=== PATIENT | female | born 1940 | race Caucasian/White ===

== ENCOUNTER 2019-05-29 08:32 | Inpatient (IN) | payer OTHER, BC ==
--- NOTE | 2019-05-29 09:35 | PDOC ---
History of Present Illness - General Stated Complaint: DRY COUGH, FEVER Time Seen by Provider: 05/29/19 09:30 - History of Present Illness Initial Comments: 05/29/19 11:27 79y/o F hx of HTN, presents to the ED with dry cough and generalized weakness for 1 week. she has not had any shortness of breath, fevers or chills at home. And she has not knowingly had any sick contacts. She has had 2 episodes of nausea and vomiting this week and has had decreased oral intake. emeses was NBNB She denies any chest pain , abdominal pain, diarrhea. she endorses ge neralized weakness and fatigue. 05/29/19 11:28 Past History - Past Medical History Allergies/Adverse Reactions: Allergies Allergy/AdvReac Type Severity Reaction Status Date / Time No Known Allergies Allergy Verified 05/29/19 10:00 Home Medications: Ambulatory Orders Azithromycin 250 mg PO ONCE 4 Days #4 tablet 05/29/19 *Physical Exam - Physical Exam 05/29/19 11:28 GENERAL: Awake, alert, and fully oriented, in no acute distress, appears tired HEAD: No signs of trauma, normocephalic, atraumatic EYES: PERRLA, EOMI, sclera anicteric, conjunctiva clear ENT: Auricles normal inspection, hearing grossly normal, nares patent, oropharynx clear without exudates. Moist mucosa NECK: Normal ROM, supple, no lymphadenopathy, JVD, or masses LUNGS: No distress, speaks full sentences, clear to auscultation bilaterally HEART: Regular rate and rhythm, normal S1 and S2, no murmurs, rubs or gallops, ABDOMEN: Soft, nontender, normoactive bowel sounds. No guarding, no rebound. No masses EXTREMITIES : Normal inspection, Normal range of motion, no edema. No clubbing or cyanosis NEUROLOGICAL: Cranial nerves II through XII grossly intact. Normal speech, no focal sensorimotor deficits SKIN: Warm, Dry, normal turgor, no rashes or lesions noted 05/29/19 11:31 ED Treatment Course - LABORATORY CBC & Chemistry Diagram: 05/29/19 09:56 05/29/19 09:56 Medical Decision Making - Medical Decision Making 05/29/19 11:32 79y/o F hx of HTN, presents to the ED with dry cough and generalized weakness for 1 week. workup cbc, cmp, troponin, x-rays iv fluids lab results remarkable for hypokalemia, hypomagnesemia, will replete and check labs and ekg atelactasis in lower left lung on CXR concerns for pneumonia will give azithromycin. 05/29/19 11:33 Discharge - Discharge Information Problems reviewed: Yes Clinical Impression/Diagnosis: Hypokalemia Pneumonia Qualifiers: Pneumonia type: due to unspecified organism Laterality: left Lung location: unspecified part of lung Qualified Code(s): J18.9 - Pneumonia, unspecified organism Condition: Stable Disposition: HOME - Additional Discharge Information Prescriptions: Azithromycin 250 mg PO ONCE 4 Days #4 tablet - Follow up/Referral - Patient Discharge Instructions Patient Printed Discharge Instructions: Pneumonia-Adult, [facility]-Coronavirus Instructions Additional Instructions: Pneumonia is a lung infection that can cause a fever, cough, and trouble breathing. Please continue all antibiotics as directed until complete. Nutrition is important - eat small frequent meals. Get lots of rest and drink fluids. Call your Primary Care Doctor upon arrival home from the hospital we have also discussed with you that your pneumonia could be bacterial, but could also have a viral cause of which covid -19 is a possible cause. stay at home stay hydrated.and take tylenol for pain, but return if you develop shortness of breath. - Post Discharge Activity
[2019-05-29] MEDS ORDERED: SODIUM CHLORIDE 500 ML IV STA ×2 (10:04→11:12)
--- NOTE | 2019-05-29 10:22 | PDOC ---
Documentation entered by Azalia Singh SCRIBE, acting as scribe for Sherie Garcia DO. Sherie Garcia DO: This documentation has been prepared by the Francisco de leon Brenda, SCRIBE, under my direction and personally reviewed by me in its entirety. I confirm that the documentation accurately reflects all work, treatment, procedures, and medical decision making performed by me. Attending Attestation - Resident Resident Name: Timothy Lema - ED Attending Attestation I have performed the following: I have examined & evaluated the patient, The case was reviewed & discussed with the resident, I agree w/resident's findings & plan, Exceptions are as noted - HPI HPI: 05/29/19 09:38 The patient is a 79 year old female, with a significant PMH of who presents to the emergency department with 4 days of cough and lightheadedness. Daughter brought her to the ED for the increasing lightheadedness. The patient denies any pain. Denies chest pain, shortness of breath. Denies fever, chills, nausea, vomiting, diarrhea and constipation. Denies dysuria, frequency, urgency and hematuria. Allergies: NKA Social history: No reported hx of tobacco use, alcohol use or illicit drug use. - Physicial Exam PE: 05/29/19 09:38 GENERAL: Awake, alert, and fully oriented, in no acute distress HEAD: No signs of trauma EYES: PERRLA, EOMI, sclera anicteric, conjunctiva clear ENT: Auricles normal inspection, hearing grossly normal, nares patent, oropharynx clear without exudates. Moist mucosa NECK: Normal ROM, supple, no lymphadenopathy, JVD, or masses LUNGS: Breath sounds equal, clear to auscultation bilaterally. No wheezes, and no crackles HEART: Regular rate and rhythm, normal S1 and S2, no murmurs, rubs or gallops ABDOMEN: Soft, nontender, normoactive bowel sounds. No guarding, no rebound. No masses EXTREMITIES: Normal range of motion, no edema. No clubbing or cyanosis. No cords, erythema, or tenderness NEUROLOGICAL: Cranial nerves II through XII grossly intact. Normal speech, normal gait SKIN: Warm, Dry, normal turgor, no rashes or lesions noted. - Medical Decision Making 05/29/19 10:21 a/p: 79yo female from home for eval of lightheadedness -pt denies feeling lightheaded, but her daughter feels she was lightheaded and called 911 -bumped into a door 2 weeks ago, healing ecchymosis to bridge of nose, no ttp, no epistaxis -pt states coughing recently, dry -denies f/c, no sob -will send labs, ekg, cxr -will hydrate, orally and iv -will monitor and reassess -pt is nontoxic in appearance 05/29/19 11:10 cxr clear sodium 127, low chloride pending potassium cxr clear 05/29/19 11:15 potassium is 2.8 will replete and then repeat ekg 05/29/19 13:51 pt with vomiting 05/29/19 13:51 pt with hypokalemia, hyponatremia vomiting in the ER will need admission 05/29/19 14:11 resident discussed the case with beth who accepts pt to service 05/29/19 14:21 pt is in new onset afib Heart Score/ECG Review - ECG Intrepretation Comment:: 05/29/19 14:20 afib at 88, nl axis, no acute st/t wave findings Discharge - Discharge Information Problems reviewed: Yes Clinical Impression/Diagnosis: Hypokalemia, New onset a-fib Pneumonia Qualifiers: Pneumonia type: due to unspecified organism Laterality: left Lung location: unspecified part of lung Qualified Code(s): J18.9 - Pneumonia, unspecified organism Condition: Stable Disposition: HOME - Additional Discharge Information Prescriptions: Azithromycin 250 mg PO ONCE 4 Days #4 tablet - Follow up/Referral - Patient Discharge Instructions Patient Printed Discharge Instructions: Pneumonia-Adult, [facility]-Coronavirus Instructions Additional Instructions: Pneumonia is a lung infection that can cause a fever, cough, and trouble breathing. Please continue all antibiotics as directed until complete. Nutrition is important - eat small frequent meals. Get lots of rest and drink fluids. Call your Primary Care Doctor upon arrival home from the hospital we have also discussed with you that your pneumonia could be bacterial, but could also have a viral cause of which covid -19 is a possible cause. stay at home stay hydrated.and take tylenol for pain, but return if you develop shortness of breath. - Post Discharge Activity
[2019-05-29 10:29] LABS: BASO % 0.3 % (0-2.0); EOS % 0.3 % (0-4.5); HEMOGLOBIN 14.8 GM/dL (10.7-15.3); LYMPH % 9.9 % (8-40); MCH 34.9 pg (25.7-33.7); MCHC 35.4 g/dl (32.0-36.0); MEAN CELL VOLUME 98.8 fl (80-96); MEAN PLT VOLUME 9.2 fl (7.5-11.1); MONO % 8.2 % (3.8-10.2); NEUT % 81.3 % (42.8-82.8); PLATELET COUNT 324 K/MM3 (134-434); RBC 4.25 M/mm3 (3.60-5.2); RDW 13.3 % (11.6-15.6); WHITE BLOOD COUNT 8.2 K/mm3 (4.0-10.0)
[2019-05-29 11:06] LABS: ALK PHOS 74 U/L (45-117); ANION GAP 20 MMOL/L (8-16); BILIRUBIN,TOTAL 1.6 mg/dL (0.2-1); BLOOD UREA NITROGEN 22.8 mg/dL (7-18); CALCIUM 10.8 mg/dL (8.5-10.1); CHLORIDE 83 mmol/L (98-107); CO2 24 mmol/L (21-32); CREATININE 1.3 mg/dL (0.55-1.3); GLUCOSE,RANDOM 189 mg/dL (74-106); SGOT/AST 79 U/L (15-37); SGPT/ALT 51 U/L (13-61); SODIUM 127 mmol/L (136-145)
[2019-05-29 11:11] LABS: POTASSIUM 2.8 mmol/L (3.5-5.1)
[2019-05-29] MEDS ORDERED: POTASSIUM CHLORIDE TABS 20 MEQ TABLET.ER (FP) PO ONE ×2 (11:11→12:14)
[2019-05-29] MEDS ORDERED: MAGNESIUM SULF 50% (8.12 MEQ/2 ML-1 GM VIAL) IVPB ONE (11:16)
[2019-05-29] MEDS ORDERED: AZITHROMYCIN IVPB 500 MG in DEXTROSE 5%-WATER - 250 ML IVPB ONE (11:26)
[2019-05-29] MEDS ORDERED: MAGNESIUM SULF 50% (8.12 MEQ/2 ML-1 GM VIAL) ONE (12:14)
[2019-05-29] MEDS ORDERED: ONDANSETRON 4 MG/2 ML VIAL IVPUSH ONE (13:41)
[2019-05-29] MEDS ORDERED: ASPIRIN 81 MG CHEWABLE TABLETS PO ONE (14:21)
[2019-05-29 15:06] LABS: ALBUMIN 3.5 g/dl (3.4-5.0); ALK PHOS 63 U/L (45-117); ANION GAP 18 MMOL/L (8-16); BILIRUBIN,TOTAL 1.1 mg/dL (0.2-1); BLOOD UREA NITROGEN 18.5 mg/dL (7-18); CALCIUM 9.5 mg/dL (8.5-10.1); CHLORIDE 87 mmol/L (98-107); CO2 23 mmol/L (21-32); CREATININE 1.1 mg/dL (0.55-1.3); GLUCOSE,RANDOM 215 mg/dL (74-106); MAGNESIUM 2.9 mg/dL (1.8-2.4); PHOSPHOROUS 2.8 mg/dL (2.5-4.9); SGOT/AST 69 U/L (15-37); SGPT/ALT 43 U/L (13-61); SODIUM 128 mmol/L (136-145); TOT PROT 6.9 g/dl (6.4-8.2)
[2019-05-29] MEDS ORDERED: ASPIRIN 81 MG CHEWABLE TABLETS ONE (15:07)
[2019-05-29] MEDS ORDERED: ONDANSETRON 4 MG/2 ML VIAL ONE (15:07)
--- NOTE | 2019-05-29 15:26 | HP ---
CHIEF COMPLAINT: Generalized weakness x 3 weeks PCP: In [place] HISTORY OF PRESENT ILLNESS: Pt is a 79 yo F with PMHx of HTN presenting from her daughters home for generalized weakness, poor PO intake and vomiting. Pt reports having a gradually decreasing appetite and PO intake over the past 3 weeks with no fever, no chest pain, no leg swelling, but pt reports a chronic dry cough. She quit smoking 46 years ago after smoking 1PPD x20 years. Pt lives in [place] and has been visiting the daughter for the past 1 week . She does not drive ( uses public transportation) and was independent in ADLS without use of walker. Pt was noted to be in new onset afib in the ED x2 EKGs, with hypokalemia and hyponatremia. She was noted to have thrown up non bloody, non bilous vomit after PO KCL was given, she denies nausea prior to the episode of vomiting, no diarrhea, no bloody stools. CXR showed atelectasis and ED decided to R/O COVID. When I saw the pt, there was no chest pain, no shortness of breath. She was initially prescribed azithromycin for CXR findings then recommended for admission for not tolerating PO. ER course was notable for: (1) CXR with atelectasis (2) K-2.8, Na-127, jonna 1.6 (3) EKG x2- new onset afib-rate 78vs 88, QTC-437vs 447, TWi then flattening anterior-inf leads (4) PO KCL 40meq x2, 1L NS, zofran Recent Travel: PAST MEDICAL HISTORY: As above PAST SURGICAL HISTORY: Denies Social History: Smoking:Quit over 40 years ago, smoked 1PPD x20 years Alcohol:4 drinks per week(wine/gin) Drugs: denies Allergies No Known Allergies Allergy (Verified 05/29/19 10:00) HOME MEDICATIONS: Home Medications Medication Instructions Recorded Azithromycin 250 mg PO ONCE 4 Days #4 tablet 05/29/19 REVIEW OF SYSTEMS As in HPI PHYSICAL EXAMINATION Vital Signs - 24 hr 05/29/19 09:56 Temperature 98.3 F Pulse Rate 86 Respiratory 20 Rate Blood Pressure 143/68 O2 Sat by Pulse 97 Oximetry (%) GENERAL: Awake, alert, and fully oriented, in no acute distress. HEAD: Normal with no signs of trauma. EYES: Pupils equal, round and reactive to light, extraocular movements intact, sclera anicteric, conjunctiva clear. EARS, NOSE, THROAT: Ears normal, nares patent, oropharynx clear without exudates. Moist mucous membranes. NECK: Normal range of motion, supple without lymphadenopathy, JVD, or masses. LUNGS: Few crackles L lung posteriorly ,no wheezes HEART: Regular rate and rhythm, normal S1 and S2 without murmur ABDOMEN: Soft, nontender, not distended, normoactive bowel sounds, no guarding, no rebound, no masses. MUSCULOSKELETAL: Normal range of motion at all joints. No bony deformities or tenderness. No CVA tenderness. LOWER EXTREMITIES: 2+ pulses, warm, well-perfused. No calf tenderness. No peripheral edema. NEUROLOGICAL: Cranial nerves II-XII intact. Normal speech. Gait not observed, no facial asymetry, able to move all extremities, Strength 5/5 globally. PSYCHIATRIC: Cooperative. Good eye contact. Appropriate mood and affect. SKIN: Warm, dry, normal turgor, no rashes or lesions noted, normal capillary refill. Laboratory Results - last 24 hr 05/29/19 05/29/19 05/29/19 09:56 09:56 14:00 WBC 8.2 RBC 4.25 Hgb 14.8 Hct 42.0 MCV 98.8 H MCH 34.9 H MCHC 35.4 RDW 13.3 Plt Count 324 MPV 9.2 Absolute Neuts (auto) 6.6 Neutrophils % 81.3 Lymphocytes % 9.9 Monocytes % 8.2 Eosinophils % 0.3 Basophils % 0.3 Nucleated RBC % 0 Sodium 127 L 128 L Potassium 2.8 L* 3.0 L Chloride 83 L 87 L Carbon Dioxide 24 23 Anion Gap 20 H 18 H BUN 22.8 H 18.5 H Creatinine 1.3 1.1 Est GFR (CKD-EPI)AfAm 45.83 56.08 Est GFR (CKD-EPI)NonAf 39.54 48.39 Random Glucose 189 H 215 H Calcium 10.8 H 9.5 Phosphorus 2.8 Magnesium 2.9 H Total Bilirubin 1.6 H 1.1 H AST 79 H 69 H ALT 51 43 Alkaline Phosphatase 74 63 Creatine Kinase 159 143 Creatine Kinase Index 1.5 CK-MB (CK-2) 2.4 Troponin I < 0.02 < 0.02 Total Protein 8.0 6.9 Albumin 4.0 3.5 ASSESSMENT/PLAN: #Generalized weakness possibly secondary to low potassium vs new onset afib vs COVID COVID swab airborne/contact precautions Respiratory virus Legionella/strep Ag CXR- atelectasis CT chest pending to R/O infiltrates Received azithromycin 1 dose in ED, will follow #New onset afib Given ASA in ED Cardiology consult- Dr Reyes [id number] (4.8 stroke risk) per year, pt TSH Lipids A1c Cannot do ECHO at this time due to R/O covid Trops <0.02 x2 cardiac monitoring #Hypokalemia, Mg pending Pt did not tolerate PO iv KCL 10meq x3 stat Hyponatremia Possibly in setting of hypovolemia Received 1L NS Cont to monitor, repeat BMP at midnight HTN Cont valsartan 120mg daily when BP tolerates, hold for now FEN No standing fluids Monitor electrolytes- Received PO Kcl 40meq x2, repeat K still 3.0, will give 10meq x3 Repeat bmp at midnight, follow magnesium Sq lovenox 40mg Tele admit Visit type - Emergency Visit Emergency Visit: Yes ED Registration Date: 05/29/19 Care time: The patient presented to the Emergency Department on the above date and was hospitalized for further evaluation of their emergent condition. - New Patient This patient is new to me today: Yes Date on this admission: 05/29/19 - Critical Care Critical Care patient: No ATTENDING PHYSICIAN STATEMENT I saw and evaluated the patient. I reviewed the resident's note and discussed the case with the resident. I agree with the resident's findings and plan as documented. SUBJECTIVE: OBJECTIVE: ASSESSMENT AND PLAN:
[2019-05-29] MEDS ORDERED: ENOXAPARIN NA (PORCINE) 40 MG/0.4 ML DISP.SYRIN SQ SCH (15:30)
[2019-05-29] MEDS: KCL 10 MEQ IVPB 10 MEQ/100 ML INFUS.BAG IVPB SCH ×3 (17:07→21:45)
--- NOTE | 2019-05-29 17:58 | PN ---
Teaching Attending Note Name of Resident: Kathryn Cristina ATTENDING PHYSICIAN STATEMENT I saw and evaluated the patient. I reviewed the resident's note and discussed the case with the resident. I agree with the resident's findings and plan as documented. SUBJECTIVE: Feels okay. Reports generalized weakness. No fever/chills/cough/sputum. OBJECTIVE: Afebrile Hemodynamicaly Stable Last Vital Signs Temp Pulse Resp BP Pulse Ox 97.9 F 65 18 138/57 L 97 05/29/19 15:44 05/29/19 15:44 05/29/19 15:44 05/29/19 15:44 05/29/19 15:44 HEENT - Bruising L nose (ran into door as per patient) Lungs - clear to auscultation Abdomen - soft, non-tender. Bowel Sounds normal. Extremities - No edema, no calf tenderness Neuro - AAO x 3. Tone/Power normal. Laboratory Results - last 24 hr 05/29/19 05/29/19 05/29/19 09:56 09:56 14:00 WBC 8.2 RBC 4.25 Hgb 14.8 Hct 42.0 MCV 98.8 H MCH 34.9 H MCHC 35.4 RDW 13.3 Plt Count 324 MPV 9.2 Absolute Neuts (auto) 6.6 Neutrophils % 81.3 Lymphocytes % 9.9 Monocytes % 8.2 Eosinophils % 0.3 Basophils % 0.3 Nucleated RBC % 0 Sodium 127 L 128 L Potassium 2.8 L* 3.0 L Chloride 83 L 87 L Carbon Dioxide 24 23 Anion Gap 20 H 18 H BUN 22.8 H 18.5 H Creatinine 1.3 1.1 Est GFR (CKD-EPI)AfAm 45.83 56.08 Est GFR (CKD-EPI)NonAf 39.54 48.39 POC Glucometer Random Glucose 189 H 215 H Calcium 10.8 H 9.5 Phosphorus 2.8 Magnesium 2.9 H Total Bilirubin 1.6 H 1.1 H AST 79 H 69 H ALT 51 43 Alkaline Phosphatase 74 63 Creatine Kinase 159 143 Creatine Kinase Index 1.5 CK-MB (CK-2) 2.4 Troponin I < 0.02 < 0.02 Total Protein 8.0 6.9 Albumin 4.0 3.5 05/29/19 16:45 WBC RBC Hgb Hct MCV MCH MCHC RDW Plt Count MPV Absolute Neuts (auto) Neutrophils % Lymphocytes % Monocytes % Eosinophils % Basophils % Nucleated RBC % Sodium Potassium Chloride Carbon Dioxide Anion Gap BUN Creatinine Est GFR (CKD-EPI)AfAm Est GFR (CKD-EPI)NonAf POC Glucometer 127 Random Glucose Calcium Phosphorus Magnesium Total Bilirubin AST ALT Alkaline Phosphatase Creatine Kinase Creatine Kinase Index CK-MB (CK-2) Troponin I Total Protein Albumin Current Medications Generic Name Dose Route Start Last Admin Trade Name Freq PRN Reason Stop Dose Admin Enoxaparin Sodium 40 mg 05/29/19 15:30 05/29/19 17:07 Lovenox - SQ 40 mg DAILY MAINOR Administration Potassium Chloride 10 meq in 100 mls @ 100 mls/hr 05/29/19 15:15 05/29/19 17:07 Potassium Chloride 10 Meq Premix Ivpb - IVPB 05/29/19 18:14 100 mls/hr Q60M MAINOR Administration Home Medications Medication Instructions Recorded Valsartan [Diovan] 120 mg PO DAILY 05/29/19 ASSESSMENT AND PLAN: 79 year old female with history of HTN, ex-smoker, presents with generalized weakness, anorexia, nausea, dry cough, found to have hypokalemia and Atelectasis LLL, and admitted for new onset Atrial Fibrillation and exclusion of COVID. 1. Newly recognized Atrial fibrillation Rate auto-controlled, asymptomatic. TropI neg. No acute ischemic changes on ECG. Cardio consult for initiation of AC. Will give 1 dose Lovenox SQ. Telemonitoring overnight Echo deferred to due to COVID exclusion status. 2. Generalized weakness, no focal deficit ?sec to viral syndrome CXR - LLL Atelectasis Dry cough Swabbed for COVID in ED and given 1 dose [address] Will get CT Chest to exclude infiltrates, will hold further Abx pending CT. Airborne/Contact precautions. 3. Hypokalemia, etiology unclear - repleted IV Normal renal function, not on diuretic. Magnesium level added. Repeat K MN. 4. HTN - normally on Valsartan will hold for now due to borderline BP. DVT Px - Lovenox SQ
[2019-05-29 18:05] VITALS: BMI 27.7
[2019-05-29 18:36] LABS: URINE APPEARANCE CLEAR; URINE BILIRUBIN NEGATIVE (NEGATIVE); URINE COLOR YELLOW; URINE GLUCOSE (UA) NEGATIVE (NEGATIVE); URINE KETONE TRACE (NEGATIVE); URINE LEUK ESTERASE NEGATIVE (NEGATIVE); URINE NITRITE NEGATIVE (NEGATIVE); URINE PROTEIN NEGATIVE (NEGATIVE); URINE UROBILINOGEN 0.2 mg/dL (0.2-1.0)
[2019-05-29] MEDS ORDERED: ENOXAPARIN NA (PORCINE) 40 MG/0.4 ML DISP.SYRIN SQ ONE (19:51)
[2019-05-29 22:28] LABS: BILIRUBIN,DIRECT 0.6 mg/dL (0.0-0.2); LDH 245 U/L (84-246)
[2019-05-30 03:48] LABS: ANION GAP 11 MMOL/L (8-16); BLOOD UREA NITROGEN 13.5 mg/dL (7-18); CALCIUM 9.4 mg/dL (8.5-10.1); CHLORIDE 95 mmol/L (98-107); CO2 26 mmol/L (21-32); CREATININE 0.9 mg/dL (0.55-1.3); GLUCOSE,RANDOM 135 mg/dL (74-106); MAGNESIUM 2.2 mg/dL (1.8-2.4); POTASSIUM 3.3 mmol/L (3.5-5.1); SODIUM 133 mmol/L (136-145)
[2019-05-30 07:21] LABS: BASO % 0.5 % (0-2.0); EOS % 2.6 % (0-4.5); HEMATOCRIT 33.2 % (32.4-45.2); HEMOGLOBIN 11.6 GM/dL (10.7-15.3); LYMPH % 20.6 % (8-40); MCH 34.4 pg (25.7-33.7); MCHC 34.8 g/dl (32.0-36.0); MEAN CELL VOLUME 98.7 fl (80-96); MEAN PLT VOLUME 8.6 fl (7.5-11.1); MONO % 12.7 % (3.8-10.2); NEUT % 63.6 % (42.8-82.8); PLATELET COUNT 225 K/MM3 (134-434); RBC 3.36 M/mm3 (3.60-5.2); RDW 13.3 % (11.6-15.6); WHITE BLOOD COUNT 4.7 K/mm3 (4.0-10.0)
[2019-05-30 07:30] LABS: INR 1.1 (0.83-1.09)
[2019-05-30 07:33] LABS: ACTIVATED PTT 36.4 SECONDS (25.2-36.5)
[2019-05-30 07:54] LABS: ALBUMIN 3.1 g/dl (3.4-5.0); BLOOD UREA NITROGEN 13.1 mg/dL (7-18); CALCIUM 9.2 mg/dL (8.5-10.1); CREATININE 0.9 mg/dL (0.55-1.3); MAGNESIUM 2.3 mg/dL (1.8-2.4); PHOSPHOROUS 2.8 mg/dL (2.5-4.9); POTASSIUM 3.5 mmol/L (3.5-5.1); TOT PROT 6.3 g/dl (6.4-8.2)
[2019-05-30] MEDS: KCL 10 MEQ IVPB 10 MEQ/100 ML INFUS.BAG IVPB SCH ×3 (09:17→11:24)
--- NOTE | 2019-05-30 09:48 | PN ---
Progress Note (short form) - Note Progress Note: CHIEF COMPLAINT: Generalized weakness x 3 weeks PCP: In [place] HISTORY OF PRESENT ILLNESS: Pt is a 79 yo F with PMHx of HTN presenting from her daughters home for generalized weakness, poor PO intake and vomiting. Pt reports having a gradually decreasing appetite and PO intake over the past 3 weeks with no fever, no chest pain, no leg swelling, but pt reports a chronic dry cough. She quit smoking 46 years ago after smoking 1PPD x20 years. Pt lives in [place] and has been visiting the daughter for the past 1 week . She does not drive ( uses public transportation) and was independent in ADLS without use of walker. Pt was noted with hypokalemia and hyponatremia. She was noted to have thrown up non bloody, non bilous vomit after PO KCL was given, she denies nausea prior to the episode of vomiting, no diarrhea, no bloody stools. CXR showed atelectasis and ED decided to R/O COVID. ECG was interpretted as AFb: howevere it,s frequent brief SVTs with sinus beats; K has improved after IV to 3.5 from <3 today on monitor, SVTs during night now decreased, NSR mostly ER course was notable for: (1) CXR with atelectasis (2) K-2.8, Na-127, jonna 1.6 (3) EKG x2- new onset afib-rate 78vs 88, QTC-437vs 447, TWi then flattening anterior-inf leads (4) PO KCL 40meq x2, 1L NS, zofran Recent Travel: PAST MEDICAL HISTORY: As above PAST SURGICAL HISTORY: Denies Social History: Smoking:Quit over 40 years ago, smoked 1PPD x20 years Alcohol:4 drinks per week(wine/gin) Drugs: denies Allergies No Known Allergies Allergy (Verified 05/29/19 10:00) HOME MEDICATIONS: Home Medications Medication Instructions Recorded Azithromycin 250 mg PO ONCE 4 Days #4 tablet 05/29/19 REVIEW OF SYSTEMS As in HPI Vital Signs Temperature 97.9 F 05/30/19 06:25 Pulse Rate 72 05/30/19 06:25 Respiratory Rate 20 05/30/19 06:25 Blood Pressure 111/56 L 05/30/19 06:25 O2 Sat by Pulse Oximetry (%) 95 05/29/19 21:00 PHYSICAL EXAMINATION GENERAL: Awake, alert, and fully oriented, in no acute distress. HEAD: Normal with no signs of trauma. EYES: Pupils equal, round and reactive to light, extraocular movements intact, sclera anicteric, conjunctiva clear. EARS, NOSE, THROAT: Ears normal, nares patent, oropharynx clear without exudates. Moist mucous membranes. NECK: Normal range of motion, supple without lymphadenopathy, JVD, or masses. LUNGS: Few crackles L lung posteriorly ,no wheezes HEART: Regular rate and rhythm, normal S1 and S2 without murmur ABDOMEN: Soft, nontender, not distended, normoactive bowel sounds, no guarding, no rebound, no masses. MUSCULOSKELETAL: Normal range of motion at all joints. No bony deformities or tenderness. No CVA tenderness. LOWER EXTREMITIES: 2+ pulses, warm, well-perfused. No calf tenderness. No peripheral edema. CBC, BMP 05/30/19 05:40 05/30/19 05:40 Active Medications Enoxaparin Sodium (Lovenox -) 40 mg SQ DAILY MAINOR Last Admin: 05/30/19 09:17 Dose: 40 mg Documented by: Potassium Chloride (Potassium Chloride 10 Meq Premix Ivpb -) 10 meq in 100 mls @ 100 mls/hr IVPB Q60M MAINOR Stop: 05/30/19 10:44 Last Admin: 05/30/19 09:17 Dose: 100 mls/hr Documented by: ASSESSMENT/PLAN: #Generalized weakness possibly secondary to low potassium vs COVID Asd per primary team #SVTs No Afb, rather frequent SVTs, now less after improving K -Treat underlying condition, replace fluid/lytes/ add BB if again episodes increase #Hypokalemia, Mg pending Pt did not tolerate PO iv KCL 10meq x3 stat Hyponatremia Possibly in setting of hypovolemia Received 1L NS Cont to monitor, repeat BMP at midnight HTN Cont valsartan 120mg daily when BP tolerates, hold for now
[2019-05-30] MEDS ORDERED: ENOXAPARIN NA (PORCINE) 40 MG/0.4 ML DISP.SYRIN SQ SCH (10:00)
--- NOTE | 2019-05-30 13:15 | DS ---
Physical Exam: SUBJECTIVE: Patient seen and examined OBJECTIVE: Vital Signs Period Temp Pulse Resp BP Sys/Palma Pulse Ox Last 24 Hr 97.6 F-98.7 F 65-80 18-20 105-138/56-78 95-97 PHYSICAL EXAM GENERAL: The patient is awake, alert, and fully oriented, in no acute distress. HEAD: Normal with no signs of trauma. EYES: PERRL, extraocular movements intact, sclera anicteric, conjunctiva clear. ENT: Ears normal, nares patent, oropharynx clear without exudates, moist mucous membranes. NECK: Trachea midline, full range of motion, supple. LUNGS: Breath sounds equal, clear to auscultation bilaterally, no wheezes, no crackles, no accessory muscle use. HEART: Regular rate and rhythm, S1, S2 without murmur, rub or gallop. ABDOMEN: Soft, nontender, nondistended, normoactive bowel sounds, no guarding, no rebound, no hepatosplenomegaly, no masses. EXTREMITIES: 2+ pulses, warm, well-perfused, no edema. NEUROLOGICAL: Cranial nerves II through XII grossly intact. Normal speech, gait not observed. PSYCH: Normal mood, normal affect. SKIN: Warm, dry, normal turgor, no rashes or lesions noted. LABS Laboratory Results - last 24 hr 05/29/19 05/29/19 05/29/19 14:00 16:45 18:00 WBC RBC Hgb Hct MCV MCH MCHC RDW Plt Count MPV Absolute Neuts (auto) Neutrophils % Lymphocytes % Monocytes % Eosinophils % Basophils % Nucleated RBC % PT with INR INR PTT (Actin FS) Sodium 128 L Potassium 3.0 L Chloride 87 L Carbon Dioxide 23 Anion Gap 18 H BUN 18.5 H Creatinine 1.1 Est GFR (CKD-EPI)AfAm 56.08 Est GFR (CKD-EPI)NonAf 48.39 POC Glucometer 127 Random Glucose 215 H Hemoglobin A1c % Calcium 9.5 Phosphorus 2.8 Magnesium 2.9 H Total Bilirubin 1.1 H Direct Bilirubin 0.6 H AST 69 H ALT 43 Alkaline Phosphatase 63 LD Total 245 Creatine Kinase 143 Troponin I < 0.02 Total Protein 6.9 Albumin 3.5 Triglycerides Cholesterol Total LDL Cholesterol HDL Cholesterol TSH Urine Color Yellow Urine Appearance Clear Urine pH 6.0 Ur Specific [place] 1.002 L Urine Protein Negative Urine Glucose (UA) Negative Urine Ketones Trace H Urine Blood Negative Urine Nitrite Negative Urine Bilirubin Negative Urine Urobilinogen 0.2 Ur Leukocyte Esterase Negative HIV Ag/Ab Combo Qual Influenza A (Rapid) Influenza B (Rapid) RSV Rapid 05/29/19 05/30/19 05/30/19 19:10 02:31 04:00 WBC RBC Hgb Hct MCV MCH MCHC RDW Plt Count MPV Absolute Neuts (auto) Neutrophils % Lymphocytes % Monocytes % Eosinophils % Basophils % Nucleated RBC % PT with INR INR PTT (Actin FS) Sodium 133 L Potassium 3.3 L Chloride 95 L Carbon Dioxide 26 Anion Gap 11 BUN 13.5 Creatinine 0.9 Est GFR (CKD-EPI)AfAm 71.48 Est GFR (CKD-EPI)NonAf 61.67 POC Glucometer Random Glucose 135 H Hemoglobin A1c % Calcium 9.4 Phosphorus Magnesium 2.2 Total Bilirubin Direct Bilirubin AST ALT Alkaline Phosphatase LD Total Creatine Kinase Troponin I < 0.02 Total Protein Albumin Triglycerides Cholesterol Total LDL Cholesterol HDL Cholesterol TSH Urine Color Urine Appearance Urine pH Ur Specific [place] Urine Protein Urine Glucose (UA) Urine Ketones Urine Blood Urine Nitrite Urine Bilirubin Urine Urobilinogen Ur Leukocyte Esterase HIV Ag/Ab Combo Qual Negative Influenza A (Rapid) Influenza B (Rapid) RSV Rapid Negative 05/30/19 05/30/19 05/30/19 04:00 05:40 05:40 WBC 4.7 RBC 3.36 L Hgb 11.6 Hct 33.2 D MCV 98.7 H MCH 34.4 H MCHC 34.8 RDW 13.3 Plt Count 225 D MPV 8.6 Absolute Neuts (auto) 3.0 Neutrophils % 63.6 D Lymphocytes % 20.6 D Monocytes % 12.7 H Eosinophils % 2.6 D Basophils % 0.5 Nucleated RBC % 0 PT with INR 13.00 INR 1.10 H PTT (Actin FS) 36.4 Sodium Potassium Chloride Carbon Dioxide Anion Gap BUN Creatinine Est GFR (CKD-EPI)AfAm Est GFR (CKD-EPI)NonAf POC Glucometer Random Glucose Hemoglobin A1c % Calcium Phosphorus Magnesium Total Bilirubin Direct Bilirubin AST ALT Alkaline Phosphatase LD Total Creatine Kinase Troponin I Total Protein Albumin Triglycerides Cholesterol Total LDL Cholesterol HDL Cholesterol TSH Urine Color Urine Appearance Urine pH Ur Specific [place] Urine Protein Urine Glucose (UA) Urine Ketones Urine Blood Urine Nitrite Urine Bilirubin Urine Urobilinogen Ur Leukocyte Esterase HIV Ag/Ab Combo Qual Influenza A (Rapid) Negative Influenza B (Rapid) Negative RSV Rapid 05/30/19 05/30/19 05:40 05:40 WBC RBC Hgb Hct MCV MCH MCHC RDW Plt Count MPV Absolute Neuts (auto) Neutrophils % Lymphocytes % Monocytes % Eosinophils % Basophils % Nucleated RBC % PT with INR INR PTT (Actin FS) Sodium 133 L Potassium 3.5 Chloride 94 L Carbon Dioxide 28 Anion Gap 11 BUN 13.1 Creatinine 0.9 Est GFR (CKD-EPI)AfAm 71.48 Est GFR (CKD-EPI)NonAf 61.67 POC Glucometer Random Glucose 126 H Hemoglobin A1c % 4.8 Calcium 9.2 Phosphorus 2.8 Magnesium 2.3 Total Bilirubin 1.0 Direct Bilirubin AST 63 H ALT 37 Alkaline Phosphatase 54 LD Total Creatine Kinase Troponin I Total Protein 6.3 L Albumin 3.1 L Triglycerides 85 Cholesterol 169 Total LDL Cholesterol 104 H HDL Cholesterol 42 TSH 0.84 Urine Color Urine Appearance Urine pH Ur Specific [place] Urine Protein Urine Glucose (UA) Urine Ketones Urine Blood Urine Nitrite Urine Bilirubin Urine Urobilinogen Ur Leukocyte Esterase HIV Ag/Ab Combo Qual Influenza A (Rapid) Influenza B (Rapid) RSV Rapid HOSPITAL COURSE: Date of Admission:05/29/19 Date of Discharge: 05/30/19 Discharge Summary Problems reviewed: Yes Reason For Visit: NEW ONSET A- FIB, PNEUMONIA, HYPOKALEMIA Current Active Problems Hypokalemia (Acute) New onset a-fib (Acute) Pneumonia (Acute) SVT (supraventricular tachycardia) (Acute) Condition: Improved - Instructions Diet, Activity, Other Instructions: You came in for generalized weakness, you were noted to have low potassium levels You received potassium intravenously and your numbers have improved You were noted to have some changes on your electrocardiogram possibly related to the low potassium that have resolved Follow up with cardiology as an outpatient for further management and possible echocardiography You are being tested for COVID 19 because you had some mild changes on your Chest Xray and Chest CT Scan. You need to self quarantine while the test results are pending We are attaching instructions We held your valsartan while here because your blood pressure was not elevated You may resume your valsartan but discuss with your primary care doctor about possibly adjusting the dose as needed Follow up with your primary care doctor If you cannot reach them, follow up with our primary care facility, you may reach them by phone, information is provided Follow up with the legal support manager Your tests for COVID are pending If you think your symptoms are not getting better, with worsening fever, chest pain, difficulty breathing please return to the nearest emergency room Referrals: [facility] [place] [facility] [place] [Provider Group] - 2 Weeks Rolf Santo MD [Staff Physician] - 2 Weeks (For outpatient echo) Disposition: HOME - Home Medications Comprehensive Discharge Medication List: Ambulatory Orders Valsartan [Diovan] 120 mg PO DAILY 05/29/19 ATTENDING PHYSICIAN STATEMENT I saw and evaluated the patient. I reviewed the resident's note and discussed the case with the resident. I agree with the resident's findings and plan as documented. SUBJECTIVE: OBJECTIVE: ASSESSMENT AND PLAN:
--- NOTE | 2019-05-30 13:41 | PN ---
Progress Note (short form) - Note Progress Note: SUBJECTIVE: Feels well. No fever/chills/cough/sputum. OBJECTIVE: Afebrile Hemodynamicaly Stable Last Vital Signs Temp Pulse Resp BP Pulse Ox 97.6 F 75 20 118/63 95 05/30/19 10:59 05/30/19 10:59 05/30/19 10:59 05/30/19 10:59 05/30/19 09:00 HEENT - Bruising L nose (ran into door as per patient) Lungs - clear to auscultation Abdomen - soft, non-tender. Bowel Sounds normal. Extremities - No edema, no calf tenderness Neuro - AAO x 3. Tone/Power normal. Laboratory Results - last 24 hr 05/29/19 05/29/19 05/29/19 14:00 16:45 18:00 WBC RBC Hgb Hct MCV MCH MCHC RDW Plt Count MPV Absolute Neuts (auto) Neutrophils % Lymphocytes % Monocytes % Eosinophils % Basophils % Nucleated RBC % PT with INR INR PTT (Actin FS) Sodium 128 L Potassium 3.0 L Chloride 87 L Carbon Dioxide 23 Anion Gap 18 H BUN 18.5 H Creatinine 1.1 Est GFR (CKD-EPI)AfAm 56.08 Est GFR (CKD-EPI)NonAf 48.39 POC Glucometer 127 Random Glucose 215 H Hemoglobin A1c % Calcium 9.5 Phosphorus 2.8 Magnesium 2.9 H Total Bilirubin 1.1 H Direct Bilirubin 0.6 H AST 69 H ALT 43 Alkaline Phosphatase 63 LD Total 245 Creatine Kinase 143 Troponin I < 0.02 Total Protein 6.9 Albumin 3.5 Triglycerides Cholesterol Total LDL Cholesterol HDL Cholesterol TSH Urine Color Yellow Urine Appearance Clear Urine pH 6.0 Ur Specific [place] 1.002 L Urine Protein Negative Urine Glucose (UA) Negative Urine Ketones Trace H Urine Blood Negative Urine Nitrite Negative Urine Bilirubin Negative Urine Urobilinogen 0.2 Ur Leukocyte Esterase Negative HIV Ag/Ab Combo Qual Influenza A (Rapid) Influenza B (Rapid) RSV Rapid 05/29/19 05/30/19 05/30/19 19:10 02:31 04:00 WBC RBC Hgb Hct MCV MCH MCHC RDW Plt Count MPV Absolute Neuts (auto) Neutrophils % Lymphocytes % Monocytes % Eosinophils % Basophils % Nucleated RBC % PT with INR INR PTT (Actin FS) Sodium 133 L Potassium 3.3 L Chloride 95 L Carbon Dioxide 26 Anion Gap 11 BUN 13.5 Creatinine 0.9 Est GFR (CKD-EPI)AfAm 71.48 Est GFR (CKD-EPI)NonAf 61.67 POC Glucometer Random Glucose 135 H Hemoglobin A1c % Calcium 9.4 Phosphorus Magnesium 2.2 Total Bilirubin Direct Bilirubin AST ALT Alkaline Phosphatase LD Total Creatine Kinase Troponin I < 0.02 Total Protein Albumin Triglycerides Cholesterol Total LDL Cholesterol HDL Cholesterol TSH Urine Color Urine Appearance Urine pH Ur Specific [place] Urine Protein Urine Glucose (UA) Urine Ketones Urine Blood Urine Nitrite Urine Bilirubin Urine Urobilinogen Ur Leukocyte Esterase HIV Ag/Ab Combo Qual Negative Influenza A (Rapid) Influenza B (Rapid) RSV Rapid Negative 05/30/19 05/30/19 05/30/19 04:00 05:40 05:40 WBC 4.7 RBC 3.36 L Hgb 11.6 Hct 33.2 D MCV 98.7 H MCH 34.4 H MCHC 34.8 RDW 13.3 Plt Count 225 D MPV 8.6 Absolute Neuts (auto) 3.0 Neutrophils % 63.6 D Lymphocytes % 20.6 D Monocytes % 12.7 H Eosinophils % 2.6 D Basophils % 0.5 Nucleated RBC % 0 PT with INR 13.00 INR 1.10 H PTT (Actin FS) 36.4 Sodium Potassium Chloride Carbon Dioxide Anion Gap BUN Creatinine Est GFR (CKD-EPI)AfAm Est GFR (CKD-EPI)NonAf POC Glucometer Random Glucose Hemoglobin A1c % Calcium Phosphorus Magnesium Total Bilirubin Direct Bilirubin AST ALT Alkaline Phosphatase LD Total Creatine Kinase Troponin I Total Protein Albumin Triglycerides Cholesterol Total LDL Cholesterol HDL Cholesterol TSH Urine Color Urine Appearance Urine pH Ur Specific [place] Urine Protein Urine Glucose (UA) Urine Ketones Urine Blood Urine Nitrite Urine Bilirubin Urine Urobilinogen Ur Leukocyte Esterase HIV Ag/Ab Combo Qual Influenza A (Rapid) Negative Influenza B (Rapid) Negative RSV Rapid 05/30/19 05/30/19 05:40 05:40 WBC RBC Hgb Hct MCV MCH MCHC RDW Plt Count MPV Absolute Neuts (auto) Neutrophils % Lymphocytes % Monocytes % Eosinophils % Basophils % Nucleated RBC % PT with INR INR PTT (Actin FS) Sodium 133 L Potassium 3.5 Chloride 94 L Carbon Dioxide 28 Anion Gap 11 BUN 13.1 Creatinine 0.9 Est GFR (CKD-EPI)AfAm 71.48 Est GFR (CKD-EPI)NonAf 61.67 POC Glucometer Random Glucose 126 H Hemoglobin A1c % 4.8 Calcium 9.2 Phosphorus 2.8 Magnesium 2.3 Total Bilirubin 1.0 Direct Bilirubin AST 63 H ALT 37 Alkaline Phosphatase 54 LD Total Creatine Kinase Troponin I Total Protein 6.3 L Albumin 3.1 L Triglycerides 85 Cholesterol 169 Total LDL Cholesterol 104 H HDL Cholesterol 42 TSH 0.84 Urine Color Urine Appearance Urine pH Ur Specific [place] Urine Protein Urine Glucose (UA) Urine Ketones Urine Blood Urine Nitrite Urine Bilirubin Urine Urobilinogen Ur Leukocyte Esterase HIV Ag/Ab Combo Qual Influenza A (Rapid) Influenza B (Rapid) RSV Rapid Current Medications Generic Name Dose Route Start Last Admin Trade Name Freq PRN Reason Stop Dose Admin Enoxaparin Sodium 40 mg 05/30/19 10:00 05/30/19 09:17 Lovenox - SQ 40 mg DAILY MAINOR Administration Home Medications Medication Instructions Recorded Valsartan [Diovan] 120 mg PO DAILY 05/29/19 Folic Acid 1 mg PO DAILY #30 tablet 05/30/19 Miscellaneous Medical Supply 1 each ASDIR #1 misc 05/30/19 [Outpatient Order] Thiamine HCl [Vitamin B1 -] 100 mg PO DAILY #30 tablet 05/30/19 ASSESSMENT AND PLAN: 79 year old female with history of HTN, ex-smoker, presents with generalized weakness, anorexia, nausea, dry cough, found to have hypokalemia and Atelectasis LLL, and admitted for new onset Atrial Fibrillation and exclusion of COVID. 1. Frequent SVCs, no Atrial fibrillation as per Cardio. Asymptomatic. TropI neg. No acute ischemic changes on ECG. Cardio consulted - for out-patient referral for monitoring. Echo deferred to due to COVID exclusion status - can be done as out-patient. 2. Generalized weakness, no focal deficit ?sec to viral syndrome CXR - LLL Atelectasis, CT Chest - no infiltrates. Dry cough Swabbed for COVID in ED and given 1 dose Azithromcyin, COVID result pending. SpO2 95-97% on RA. Medically stable for discharge home with COVID isolation/self-quarantine precautions. Counselled. 3. Hypokalemia, etiology unclear - repleted IV Normal renal function, not on diuretic. Magnesium level normal. 4. HTN - normally on Valsartan will hold for now due to borderline BP. Can see PCP for resuming as an out-patient. Advised to perform daily home BP measurements and to rsme Valsartan if BP > 140/90 DVT Px - Lovenox SQ Visit type - Emergency Visit Emergency Visit: Yes ED Registration Date: 05/29/19 Care time: The patient presented to the Emergency Department on the above date and was hospitalized for further evaluation of their emergent condition. - New Patient This patient is new to me today: No - Critical Care Critical Care patient: No - Discharge Referral Referred to [facility] Med P.C.: No
[2019-05-30 14:11] VITALS: BP 108/55; PULSE 86; TEMP 98.1
--- NOTE | 2019-05-30 15:11 | DS ---
Physical Exam: SUBJECTIVE: Patient seen and examined by attending due to COVID precautions OBJECTIVE: Vital Signs Period Temp Pulse Resp BP Sys/Palma Pulse Ox Last 24 Hr 97.6 F-98.7 F 65-86 18-20 105-138/55-78 95-97 LABS Laboratory Results - last 24 hr 05/29/19 05/29/19 05/29/19 14:00 16:45 18:00 WBC RBC Hgb Hct MCV MCH MCHC RDW Plt Count MPV Absolute Neuts (auto) Neutrophils % Lymphocytes % Monocytes % Eosinophils % Basophils % Nucleated RBC % PT with INR INR PTT (Actin FS) Sodium 128 L Potassium 3.0 L Chloride 87 L Carbon Dioxide 23 Anion Gap 18 H BUN 18.5 H Creatinine 1.1 Est GFR (CKD-EPI)AfAm 56.08 Est GFR (CKD-EPI)NonAf 48.39 POC Glucometer 127 Random Glucose 215 H Hemoglobin A1c % Calcium 9.5 Phosphorus 2.8 Magnesium 2.9 H Total Bilirubin 1.1 H Direct Bilirubin 0.6 H AST 69 H ALT 43 Alkaline Phosphatase 63 LD Total 245 Creatine Kinase 143 Troponin I < 0.02 Total Protein 6.9 Albumin 3.5 Triglycerides Cholesterol Total LDL Cholesterol HDL Cholesterol TSH Urine Color Yellow Urine Appearance Clear Urine pH 6.0 Ur Specific [place] 1.002 L Urine Protein Negative Urine Glucose (UA) Negative Urine Ketones Trace H Urine Blood Negative Urine Nitrite Negative Urine Bilirubin Negative Urine Urobilinogen 0.2 Ur Leukocyte Esterase Negative HIV Ag/Ab Combo Qual Influenza A (Rapid) Influenza B (Rapid) RSV Rapid 05/29/19 05/30/19 05/30/19 19:10 02:31 04:00 WBC RBC Hgb Hct MCV MCH MCHC RDW Plt Count MPV Absolute Neuts (auto) Neutrophils % Lymphocytes % Monocytes % Eosinophils % Basophils % Nucleated RBC % PT with INR INR PTT (Actin FS) Sodium 133 L Potassium 3.3 L Chloride 95 L Carbon Dioxide 26 Anion Gap 11 BUN 13.5 Creatinine 0.9 Est GFR (CKD-EPI)AfAm 71.48 Est GFR (CKD-EPI)NonAf 61.67 POC Glucometer Random Glucose 135 H Hemoglobin A1c % Calcium 9.4 Phosphorus Magnesium 2.2 Total Bilirubin Direct Bilirubin AST ALT Alkaline Phosphatase LD Total Creatine Kinase Troponin I < 0.02 Total Protein Albumin Triglycerides Cholesterol Total LDL Cholesterol HDL Cholesterol TSH Urine Color Urine Appearance Urine pH Ur Specific [place] Urine Protein Urine Glucose (UA) Urine Ketones Urine Blood Urine Nitrite Urine Bilirubin Urine Urobilinogen Ur Leukocyte Esterase HIV Ag/Ab Combo Qual Negative Influenza A (Rapid) Influenza B (Rapid) RSV Rapid Negative 05/30/19 05/30/19 05/30/19 04:00 05:40 05:40 WBC 4.7 RBC 3.36 L Hgb 11.6 Hct 33.2 D MCV 98.7 H MCH 34.4 H MCHC 34.8 RDW 13.3 Plt Count 225 D MPV 8.6 Absolute Neuts (auto) 3.0 Neutrophils % 63.6 D Lymphocytes % 20.6 D Monocytes % 12.7 H Eosinophils % 2.6 D Basophils % 0.5 Nucleated RBC % 0 PT with INR 13.00 INR 1.10 H PTT (Actin FS) 36.4 Sodium Potassium Chloride Carbon Dioxide Anion Gap BUN Creatinine Est GFR (CKD-EPI)AfAm Est GFR (CKD-EPI)NonAf POC Glucometer Random Glucose Hemoglobin A1c % Calcium Phosphorus Magnesium Total Bilirubin Direct Bilirubin AST ALT Alkaline Phosphatase LD Total Creatine Kinase Troponin I Total Protein Albumin Triglycerides Cholesterol Total LDL Cholesterol HDL Cholesterol TSH Urine Color Urine Appearance Urine pH Ur Specific [place] Urine Protein Urine Glucose (UA) Urine Ketones Urine Blood Urine Nitrite Urine Bilirubin Urine Urobilinogen Ur Leukocyte Esterase HIV Ag/Ab Combo Qual Influenza A (Rapid) Negative Influenza B (Rapid) Negative RSV Rapid 05/30/19 05/30/19 05:40 05:40 WBC RBC Hgb Hct MCV MCH MCHC RDW Plt Count MPV Absolute Neuts (auto) Neutrophils % Lymphocytes % Monocytes % Eosinophils % Basophils % Nucleated RBC % PT with INR INR PTT (Actin FS) Sodium 133 L Potassium 3.5 Chloride 94 L Carbon Dioxide 28 Anion Gap 11 BUN 13.1 Creatinine 0.9 Est GFR (CKD-EPI)AfAm 71.48 Est GFR (CKD-EPI)NonAf 61.67 POC Glucometer Random Glucose 126 H Hemoglobin A1c % 4.8 Calcium 9.2 Phosphorus 2.8 Magnesium 2.3 Total Bilirubin 1.0 Direct Bilirubin AST 63 H ALT 37 Alkaline Phosphatase 54 LD Total Creatine Kinase Troponin I Total Protein 6.3 L Albumin 3.1 L Triglycerides 85 Cholesterol 169 Total LDL Cholesterol 104 H HDL Cholesterol 42 TSH 0.84 Urine Color Urine Appearance Urine pH Ur Specific [place] Urine Protein Urine Glucose (UA) Urine Ketones Urine Blood Urine Nitrite Urine Bilirubin Urine Urobilinogen Ur Leukocyte Esterase HIV Ag/Ab Combo Qual Influenza A (Rapid) Influenza B (Rapid) RSV Rapid HOSPITAL COURSE: Date of Admission:05/29/19 Date of Discharge: 05/30/19 79 year old female with history of HTN, ex-smoker, presents with generalized weakness, anorexia, nausea, dry cough, found to have hypokalemia and Atelectasis LLL, and admitted for new onset Atrial Fibrillation and exclusion of COVID. Currently awaiting COVID results, atelectactic changes LL base on CXR and CT chest. Treated for hypokalemia with intravenous potassium, with improvement in weakness. and seen by cardiology for what appeared to be atrial fibrillation, now reported as SVTs, probaly secondary to electrolyte abnormalities. Pt in sinus rhythm following correction of electrolytes, will follow up as an outpatient for possible echocardiography when off COVID precautions. Pt's Valsartan was held due to borderline BP, may be resumed by PCP as an out- patient, but advised on daily home BP measurements and to resume Valsartan if BP > 140/90. Pt was discharged home to daughter and advised on COVID precautions. Daughter reported mother as alcoholic who had been off drinks for over 1 week and was not likely to withdraw on discharge. Thiamine and folic acid were prescribed and patient cautioned to abstain from alcohol. Minutes to complete discharge: 38 Discharge Summary Problems reviewed: Yes Reason For Visit: NEW ONSET A- FIB, PNEUMONIA, HYPOKALEMIA Current Active Problems Hypokalemia (Acute) New onset a-fib (Acute) Pneumonia (Acute) SVT (supraventricular tachycardia) (Acute) Condition: Improved - Instructions Diet, Activity, Other Instructions: You came in for generalized weakness, you were noted to have low potassium levels You received potassium intravenously and your numbers have improved You were noted to have some changes on your electrocardiogram possibly related to the low potassium that have resolved Follow up with cardiology as an outpatient for further management and possible echocardiography You are being tested for COVID 19 because you had some mild changes on your Chest Xray and Chest CT Scan. You need to self quarantine while the test results are pending We are attaching instructions Medications: We held your valsartan while here because your blood pressure was not elevated We are holding your valsartann because your blood pressure was low We are prescribing a blood pressure machine for you, measure your blood pressure daily and resume your blood pressure medication if your blood pressure goes above 140/90 We are prescribing thiamine and folic acid to help you with your appetite, we advise you to abstain from alcohol ingestion as it could weaken your heart Follow up with your primary care doctor If you cannot reach them, follow up with our primary care facility, you may reach them by phone, information is provided Follow up with the automotive painter Your tests for COVID are pending If you think your symptoms are not getting better, with worsening fever, chest pain, difficulty breathing please return to the nearest emergency room Referrals: [facility] [place] [facility] [place] [Provider Group] - 2 Weeks Rolf Santo MD [Staff Physician] - 2 Weeks (For outpatient echo) Disposition: HOME - Home Medications Comprehensive Discharge Medication List: Ambulatory Orders Valsartan [Diovan] 120 mg PO DAILY 05/29/19 Folic Acid 1 mg PO DAILY #30 tablet 05/30/19 Miscellaneous Medical Supply [Outpatient Order] 1 each ASDIR #1 misc 05/30/19 Thiamine HCl [Vitamin B1 -] 100 mg PO DAILY #30 tablet 05/30/19 This patient is new to me today: No Emergency Visit: Yes ED Registration Date: 05/29/19 Care time: The patient presented to the Emergency Department on the above date and was hospitalized for further evaluation of their emergent condition. Critical Care patient: No - Discharge Referral Referred to [facility] Med P.C.: No ATTENDING PHYSICIAN STATEMENT I saw and evaluated the patient. I reviewed the resident's note and discussed the case with the resident. I agree with the resident's findings and plan as documented. SUBJECTIVE: OBJECTIVE: ASSESSMENT AND PLAN:
--- NOTE | 2019-05-31 14:49 | EKG ---
Test Reason : Blood Pressure : / mmHG Vent. Rate : 078 BPM Atrial Rate : 115 BPM P-R Int : 000 ms QRS Dur : 088 ms QT Int : 384 ms P-R-T Axes : 000 026 053 degrees QTc Int : 437 ms ATRIAL FIBRILLATION ABNORMAL ECG NO PREVIOUS ECGS AVAILABLE Confirmed by MERLINE BOLANOS MD ([id number]) on 05/31/2019 2:49:12 PM Referred By: Confirmed By:MERLINE BOLANOS MD
--- NOTE | 2019-05-31 14:49 | EKG ---
Test Reason : Blood Pressure : / mmHG Vent. Rate : 088 BPM Atrial Rate : 394 BPM P-R Int : 000 ms QRS Dur : 088 ms QT Int : 370 ms P-R-T Axes : 000 016 045 degrees QTc Int : 447 ms ATRIAL FIBRILLATION NONSPECIFIC ST AND T WAVE ABNORMALITY WHEN COMPARED WITH ECG OF 29-MAY-2019 10:36, NO SIGNIFICANT CHANGE WAS FOUND Confirmed by MERLINE BOLANOS MD ([id number]) on 05/31/2019 2:48:41 PM Referred By: Confirmed By:MERLINE BOLANOS MD
== END 2019-05-30 15:23 | disposition home or self-care (01) | DRG 309 ==
LOC: JER 08:32 → JERBED 14:21 → J4W 16:20
DX: I48.91 Unspecified atrial fibrillation (principal); E87.1 Hypo-osmolality and hyponatremia; J98.11 Atelectasis; R53.1 Weakness; E87.6 Hypokalemia; I10 Essential (primary) hypertension; I47.1 Supraventricular tachycardia; E83.42 Hypomagnesemia
CPT/HCPCS: 36415; 71045-TC-FY; 71250-TC; 80048; 80053; 80061; 80074; 81003; 82248; 82550; 82553; 82962; 83036; 83615; 83721; 83735; 84100; 84443; 84484; 85025; 85610; 85730; 87040; 87086; 87186; 87389; 87633; 87804; 87807; 87899; 93005; 93010; 99285-25; J7030; U0002